=== PATIENT | female | born 1975 | race Hispanic/Latino ===

== ENCOUNTER 2020-08-28 08:11 | Emergency (ER) | payer OTHER ==
[~2020-08-28] VITALS: Ht 160 cm; Wt 88.0 kg
[2020-08-28 09:21] VITALS: BP 133/75
== END 2020-08-28 09:30 | disposition home or self-care (01) ==
LOC: ED 08:11
DX: U07.1 COVID-19 (principal); M54.5 Low back pain; M54.6 Pain in thoracic spine; R50.9 Fever, unspecified; R52 Pain, unspecified